=== PATIENT | male | born 1950 | race Caucasian/White ===

== ENCOUNTER 2018-09-11 07:29 | Emergency (ER) | payer MEDICARE, BC ==
[~2018-09-11] VITALS: Ht 180.3 cm; Wt 100.0 kg
[2018-09-11] MEDS ORDERED: ELIQUIS5 MG PO (07:44)
[2018-09-11] MEDS ORDERED: CARVEDILOL6.25 MG PO (07:45)
[2018-09-11] MEDS ORDERED: ATORVASTATIN CA10 MG PO (07:46)
[2018-09-11] MEDS ORDERED: SERTRALINE50 MG PO (07:47)
[2018-09-11] MEDS ORDERED: FINASTERIDE5 MG PO (07:48)
[2018-09-11] MEDS ORDERED: CIALIS20 MG PO (07:48)
[2018-09-11] MEDS ORDERED: PERCOCET 10/31 COMBO PO (07:49)
[2018-09-11 07:58] LABS: HEMATOCRIT 46.4 % (39.0-50.0); HEMOGLOBIN 15.3 g/dl (14.0-18.0); IMMATURE GRANULOCYTES 0.5 % (0.0-5.0); MEAN CELL VOLUME 90.6 fL CALC (80.0-100.0); MEAN CORPUSCULAR HGB 29.9 pG CALC (26.0-32.0); NEUT# 8.92 thou/uL (1.82-7.42); RED BLOOD COUNT 5.12 mill/uL (4.70-6.10); RED CELL DISTRI WIDTH 14.4 % (11.5-15.5)
[2018-09-11 08:13] LABS: ALBUMIN 4.4 g/dL (3.2-5.0); ALKALINE PHOSPHATASE 81 u/l (38-126); ANION GAP 14 (6-22 (CALC)); BILIRUBIN, TOTAL 0.8 mg/dL (0.0-1.4); BUN 32 mg/dL (8-23); BUN/CREATININE RATIO 32 (12-20 (CALC)); CARBON DIOXIDE 29 mmol/l (22-30); CHLORIDE 102 mmol/l (95-108); GFR > 60 ML/MIN (>=60 (CALC)); GFR FOR AFR.AMER. > 60 ML/MIN (>=60 (CALC)); LIPASE 243 u/l (23-300); POTASSIUM 4.8 mmol/l (3.5-5.1); SGOT/AST 25 u/l (19-48); SODIUM 140 mmol/l (137-146); TOTAL PROTEIN 7.1 g/dL (6.3-8.2)
[2018-09-11] MEDS ORDERED: CATAPRES0.1 MG PO (10:15)
[2018-09-11 10:27] VITALS: BP 157/110
== END 2018-09-11 10:42 | disposition home or self-care (01) ==
LOC: ED 07:29 → ED-I 09:47 → ED 10:42
PROVIDERS: Emergency Medicine
DX: I10 Essential (primary) hypertension (principal); I48.91 Unspecified atrial fibrillation

== ENCOUNTER → 2018-11-14 | Outpatient (REF) ==
[~2018-11-14] MED LIST: ATORVASTATIN CA10 MG PO; CARVEDILOL6.25 MG PO; CATAPRES0.1 MG PO; CIALIS20 MG PO; ELIQUIS5 MG PO; FINASTERIDE5 MG PO; PERCOCET 10/31 COMBO PO; SERTRALINE50 MG PO
== END | disposition home or self-care (01) | DRG 951 ==
LOC: PAGE 09:00
PROVIDERS: ATTEND Nurse Practitioner Family
DX: Z23 Encounter for immunization (principal)

== ENCOUNTER 2021-03-23 06:15 | Day surgery (SDC) | payer MEDICARE, BC ==
[~2021-03-23] VITALS: Ht 180.3 cm; Wt 90.7 kg
[~2021-03-23 06:15] MED LIST changes: +ALL DAY10 MG PO; +AMLODIPINE BESY10 MG PO; +AVAPRO300 MG PO; +MULTIVITAMI9 PO; +TAMSULOSIN0.4 MG PO
[2021-03-23 08:39] VITALS: BP 133/78
== END 2021-03-23 08:20 | disposition home or self-care (01) ==
LOC: ENDO 06:15
PROVIDERS: ATTEND Surgery
PROC: 0DBK8ZX Excision of Ascending Colon, Via Natural or Artificial Opening Endoscopic, Diagnostic (ICD-10-PCS; principal; 2021-03-23)
PROC: 0DBM8ZX Excision of Descending Colon, Via Natural or Artificial Opening Endoscopic, Diagnostic (ICD-10-PCS; 2021-03-23)
PROC: 0DBL8ZX Excision of Transverse Colon, Via Natural or Artificial Opening Endoscopic, Diagnostic (ICD-10-PCS; 2021-03-23)
PROC: 0DBN8ZX Excision of Sigmoid Colon, Via Natural or Artificial Opening Endoscopic, Diagnostic (ICD-10-PCS; 2021-03-23)
DX: Z12.11 Encounter for screening for malignant neoplasm of colon (principal); D12.4 Benign neoplasm of descending colon; D12.2 Benign neoplasm of ascending colon; D12.5 Benign neoplasm of sigmoid colon; D12.3 Benign neoplasm of transverse colon; I10 Essential (primary) hypertension; I48.91 Unspecified atrial fibrillation

== ENCOUNTER 2021-08-30 17:41 | Emergency (ER) | payer MEDICARE, BC ==
[~2021-08-30] VITALS: Ht 180.3 cm; Wt 92.7 kg
[2021-08-30 18:16] LABS: IMMATURE GRANULOCYTES 0.3 % (0.0-5.0); MEAN CELL VOLUME 89.7 fL CALC (80.0-100.0); MEAN CORPUSCULAR HGB 29.9 pG CALC (26.0-32.0); MEAN CORPUSCULAR HGB CONC 33.3 g/dL CAL (32.0-36.0); NEUT# 5.05 thou/uL (1.82-7.42); RED BLOOD COUNT 4.35 mill/uL (4.70-6.10); RED CELL DISTRI WIDTH 13.8 % (11.5-15.5)
[2021-08-30] MEDS ORDERED: ZOLOFT25 MG PO (18:27)
[2021-08-30 18:30] LABS: ALBUMIN 3.9 g/dL (3.2-5.0); ALKALINE PHOSPHATASE 106 u/l (38-126); ANION GAP 12 (6-22 (CALC)); BUN 25 mg/dL (8-23); BUN/CREATININE RATIO 19 (12-20 (CALC)); CARBON DIOXIDE 24 mmol/l (22-30); CHLORIDE 107 mmol/l (95-108); CREATININE 1.3 mg/dL (0.7-1.3); GFR 54 ML/MIN (>=60 (CALC)); GFR FOR AFR.AMER. > 60 ML/MIN (>=60 (CALC)); POTASSIUM 4.3 mmol/l (3.5-5.1); SODIUM 139 mmol/l (137-146); TOTAL PROTEIN 6.8 g/dL (6.3-8.2)
[2021-08-30 18:35] LABS: BILIRUBIN, TOTAL 0.9 mg/dL (0.0-1.4); SGOT/AST 50 u/l (19-48)
[2021-08-30] MEDS ORDERED: TRAZODONE50 MG PO (18:40)
[2021-08-30] MEDS ORDERED: CIALIS2.5 MG PO (18:41)
[2021-08-30] MEDS ORDERED: MODAFINIL200 MG PO (18:44)
[2021-08-30] MEDS ORDERED: FEXOFENADINE PO (18:46)
[2021-08-30] MEDS ORDERED: ZITHROMAX TRI-500 MG PO (21:08)
[2021-08-30 21:12] VITALS: BP 135/77
== END 2021-08-30 21:17 | disposition home or self-care (01) ==
LOC: ED 17:41
PROVIDERS: Family Medicine
DX: J18.9 Pneumonia, unspecified organism (principal); I10 Essential (primary) hypertension; I48.91 Unspecified atrial fibrillation; E78.5 Hyperlipidemia, unspecified; Z20.822 Contact with and (suspected) exposure to COVID-19
CPT/HCPCS: Q9967

== ENCOUNTER 2022-02-24 07:00 | Day surgery (SDC) | payer MEDICARE, BC ==
[~2022-02-24] VITALS: Ht 180.3 cm; Wt 92.1 kg
[~2022-02-24 07:00] MED LIST changes: +CIALIS2.5 MG PO; +FEXOFENADINE PO; +MODAFINIL200 MG PO; +TRAZODONE50 MG PO; +ZITHROMAX TRI-500 MG PO; +ZOLOFT25 MG PO
[2022-02-24] MEDS ORDERED: AMLODIPINE BESY10 MG PO (07:24)
[2022-02-24 11:37] VITALS: BP 133/68
== END 2022-02-24 09:10 | disposition home or self-care (01) ==
LOC: ORM 07:00
PROVIDERS: ATTEND Physical Medicine & Rehabilitation
DX: M75.51 Bursitis of right shoulder (principal); M25.511 Pain in right shoulder; G89.4 Chronic pain syndrome
CPT/HCPCS: Q9967

== ENCOUNTER 2023-03-23 07:00 | Day surgery (SDC) | payer MEDICARE, BC ==
[~2023-03-23] VITALS: Ht 180.3 cm; Wt 94.8 kg
[~2023-03-23 07:00] MED LIST changes: +METRONIDAZOLE500 MG PO; +VANCOMYCIN HCL125 M1 PO
[2023-03-23 09:14] VITALS: BP 134/84
== END 2023-03-23 08:55 | disposition home or self-care (01) ==
LOC: ORM 07:00
PROVIDERS: ATTEND Physical Medicine & Rehabilitation Pain Medicine
DX: G89.4 Chronic pain syndrome (principal); M25.511 Pain in right shoulder; M75.51 Bursitis of right shoulder; M54.9 Dorsalgia, unspecified; Z11.59 Encounter for screening for other viral diseases

== ENCOUNTER 2023-06-01 07:00 | Day surgery (SDC) | payer MEDICARE, BC ==
[~2023-06-01] VITALS: Ht 177.8 cm; Wt 90.7 kg
[2023-06-01] MEDS ORDERED: ASPIRINCHW 81MG PO (07:21)
[2023-06-01] MEDS ORDERED: FISH OIL1000 M1 PO (07:22)
[2023-06-01] MEDS ORDERED: D31000 UNIT PO (07:22)
[2023-06-01 09:23] VITALS: BP 129/87
== END 2023-06-01 09:18 | disposition home or self-care (01) ==
LOC: ORM 07:00
PROVIDERS: ATTEND Physical Medicine & Rehabilitation Pain Medicine
DX: M25.511 Pain in right shoulder (principal); G89.4 Chronic pain syndrome; G89.29 Other chronic pain; M75.51 Bursitis of right shoulder; M54.9 Dorsalgia, unspecified

== ENCOUNTER 2024-02-15 08:36 | Emergency (ER) | payer MEDICARE, BC ==
[~2024-02-15] VITALS: Ht 177.8 cm; Wt 79.4 kg
[~2024-02-15 08:36] MED LIST changes: +ASPIRINCHW 81MG PO; +D31000 UNIT PO; +FISH OIL1000 M1 PO
[2024-02-15 08:58] VITALS: BP 146/82
[2024-02-15] MEDS ORDERED: ZPAK PO (09:04)
[2024-02-15] MEDS ORDERED: AMOX/K CLAV875 M1 PO (09:04)
[2024-02-15 09:05] VITALS: BP 122/68
[2024-02-15] MEDS ORDERED: RABIES VACCINE, PCEC 2.5 UNITS/VIAL SDV IM ONE (09:05)
[2024-02-15] MEDS ORDERED: RABIES IMMUNE GLOBULIN 1,500 IU/10 ML SDV IM ONE (09:05)
[2024-02-15] MEDS ORDERED: Diph, Acellular Pertussis, Tet 0.5 ML/VIAL (Tdap) SDV IM ONE (09:05)
[2024-02-15 10:00] VITALS: BP 122/68
== END 2024-02-15 10:12 | disposition home or self-care (01) ==
LOC: ED 08:36
DX: S61.254A Open bite of right ring finger without damage to nail, initial encounter (principal); S60.512A Abrasion of left hand, initial encounter; I10 Essential (primary) hypertension; I48.91 Unspecified atrial fibrillation; E78.5 Hyperlipidemia, unspecified; W55.01XA Bitten by cat, initial encounter; W55.03XA Scratched by cat, initial encounter
CPT/HCPCS: 90377

== ENCOUNTER 2024-02-18 08:51 | Emergency (ER) | payer MEDICARE, BC ==
[~2024-02-18] VITALS: Ht 177.8 cm; Wt 74.8 kg
[~2024-02-18 08:51] MED LIST changes: +AMOX/K CLAV875 M1 PO; +ZPAK PO
[2024-02-18 09:02] VITALS: BP 105/64
[2024-02-18 09:16] VITALS: BP 114/67
[2024-02-18] MEDS ORDERED: RABIES VACCINE, PCEC 2.5 UNITS/VIAL SDV IM ONE (09:20)
[2024-02-18 09:31] VITALS: BP 114/55
[2024-02-18 09:45] VITALS: BP 112/62
[2024-02-18 10:01] VITALS: BP 131/76
== END 2024-02-18 10:05 | disposition home or self-care (01) ==
LOC: ED 08:51
DX: S61.250D Open bite of right index finger without damage to nail, subsequent encounter (principal); W55.01XD Bitten by cat, subsequent encounter; S60.512D Abrasion of left hand, subsequent encounter; W55.03XD Scratched by cat, subsequent encounter